=== PATIENT | male | born 1980 | race Caucasian/White ===

== ENCOUNTER 2016-07-25 05:45 | Day surgery (SDC) | payer OTHER ==
[~2016-07-25] VITALS: Ht 172.7 cm; Wt 88.0 kg
[2016-07-25] MEDS ORDERED: PROPOFOL 200MG/ 20ML VIAL (DIPRIVAN) IV ONE (07:21)
[2016-07-25] MEDS ORDERED: ROCURONIUM BROMIDE 10 MG/ML (ZEMURON) IV ONE (07:21)
[2016-07-25] MEDS ORDERED: METOCLOPRAMIDE HCL 10 MG/2 ML VIAL IVP ONE (07:21)
[2016-07-25] MEDS ORDERED: NS IRRIG SOLN 1000 ML IR ONE (07:21)
[2016-07-25] MEDS ORDERED: NS 100 ML BAG IV ONE (07:21)
[2016-07-25] MEDS ORDERED: SUCCINYLCHOLINE CHLORIDE 20 MG/ML(QUELICIN) IVP ONE (07:21)
[2016-07-25] MEDS ORDERED: MUPIROCIN 2% TOPICAL OINTMENT 22 GM TP ONE (07:21)
[2016-07-25] MEDS ORDERED: LIDOCAINE/EPI 1% 1:100000 20 ML VIAL INJ ONE (07:21)
[2016-07-25] MEDS ORDERED: fentaNYL CITRATE/PF 100 MCG/2 ML AMP IVP ONE (07:21)
[2016-07-25] MEDS ORDERED: SEVOFLURANE 15 MIN GAS INH ONE (07:21)
[2016-07-25] MEDS ORDERED: BACITRACIN ZINC 15 GM TOPICAL OINTMENT TP ONE (07:21)
[2016-07-25] MEDS ORDERED: WATER FOR IRRIGATION,STERILE 1,000 ML IRRIG.SOLN IR ONE (07:21)
[2016-07-25] MEDS ORDERED: LR 1,000 ML IV.SOLN IV ONE (07:21)
[2016-07-25] MEDS ORDERED: MIDAZOLAM HCL 5 MG/5 ML VIAL IVP ONE (07:21)
[2016-07-25] MEDS ORDERED: DEXAMETHASONE SOD PHOSPHATE 4 MG/ML VIAL IVP ONE (07:21)
[2016-07-25] MEDS ORDERED: GLYCOPYRROLATE 0.2 MG/ML VIAL IJ ONE (07:21)
[2016-07-25] MEDS ORDERED: EPINEPHrine 1 MG/ML AMP IVP ONE (07:21)
[2016-07-25] MEDS ORDERED: LR 1,000 ML IV ONE (08:13)
[2016-07-25] MEDS ORDERED: ONDANSETRON HCL 4 MG/2 ML VIAL IVP PRN ×2 (08:15)
[2016-07-25] MEDS ORDERED: NALBUPHINE HCL 10 MG/ML AMP IVP PRN (08:15)
[2016-07-25] MEDS ORDERED: NALOXONE HCL 0.4 MG/ML AMP (NARCAN) IVP PRN (08:15)
[2016-07-25] MEDS ORDERED: ePHEDrine sulfate 50 MG/ML VIAL IVP PRN (08:15)
[2016-07-25] MEDS ORDERED: fentaNYL CITRATE/PF 100 MCG/2 ML AMP IVP PRN (08:15)
[2016-07-25] MEDS ORDERED: DIPHENHYDRAMINE INJ 50 MG/ML VIAL IVP PRN (08:15)
[2016-07-25 12:09] VITALS: BP_SYST 139
== END 2016-07-25 11:10 | disposition home or self-care (01) ==
LOC: SMU 05:45 → SDS 05:45
PROVIDERS: ATTEND Otolaryngology
DX: J32.9 Chronic sinusitis, unspecified (principal); J34.89 Other specified disorders of nose and nasal sinuses; J34.2 Deviated nasal septum; Z98.890 Other specified postprocedural states; E66.9 Obesity, unspecified
CPT/HCPCS: 30140; 30520; 31255; 31256; 88305; 88311; C1726; J0171; J0330; J1100; J2250; J2704; J2765; J3010; J3490; J7120